=== PATIENT | female | born 1945 | race Caucasian/White ===

== ENCOUNTER 2017-11-15 21:29 | Inpatient (IN) | payer MEDICARE, MEDICAID ==
[~2017-11-15] VITALS: Ht 132.1 cm; Wt 57.4 kg
[~2017-11-15 21:29] MED LIST: DIABETA5 MG PO; FOSAMAX 70MG TA70 MG PO; GLYBURIDE5 MG PO; JANUVIA 100MG100 MG PO; JANUVIA100 MG PO; LISINOPRIL/HCTZ1 TA2 PO; MELOXICAM7.5 MG PO; METFORMIN1000 MG PO; METFORMIN500 MG PO; MOBIC7.5 MG PO; NEXIUM 40MG40 MG PO; NEXIUM40 MG PO; PHENERGAN 25 TA25 MG PO; VICODIN 5/5001 UDTAB PO
[2017-11-15 22:49] LABS: BASO % 0.4 % (0.0-2.0); GRAN # 9.9 (1.4-6.5); GRAN % 87.5 % (42.2-75.2); HEMATOCRIT 37.4 % (37.0-47.0); HEMOGLOBIN 12.2 g/dl (12.5-16.0); LYMPH % 8.4 % (20.0-51.0); MEAN CELL VOLUME 82 fl (80.0-100.0); MEAN CORPUSCULAR HEMOGLOBIN 27 pg (27.0-31.0); MEAN CORPUSCULAR HGB CONC 33 g/dl (33.0-37.0); MEAN PLATELET VOLUME 8.8 fl (7.4-10.4); MONO # 0.4 (0.1-0.6); MONO % 3.1 % (1.7-9.3); PLATELET COUNT 245 K/mm3 (130-400); RED BLOOD COUNT 4.56 M/mm3 (4.10-5.30); WHITE BLOOD COUNT 11.3 K/mm3 (4.8-10.8)
[2017-11-15] MEDS ORDERED: ANTIVERT 25MG25 MG PO (23:03)
[2017-11-15 23:05] LABS: ADJUSTED CALCIUM 9.1 mg/dL (8.4-10.2); ALANINE AMINOTRANSFERASE 113 U/L (9-52); ALBUMIN 4.6 gm/dL (3.5-5.0); ALKALINE PHOSPHATASE 135 U/L (50-136); ANION GAP 13 mmol/L (7-16); BILIRUBIN,TOTAL 0.6 mg/dL (0.0-1.0); BLOOD UREA NITROGEN 21 mg/dL (7-17); C-REACTIVE PROTEIN 0.9 mg/dL (0.0-0.9); CALCIUM 9.6 mg/dL (8.4-10.2); CARBON DIOXIDE 29 mmol/L (22-30); CHLORIDE 93 mmol/L (98-107); CREATININE, serum 0.67 mg/dL (0.52-1.25); GLUCOSE 273 mg/dL (74-106); LIPASE 164 U/L (23-300); POTASSIUM 3.7 mmol/L (3.4-5.0); SODIUM 135 mmol/L (137-145)
[2017-11-15] MEDS ORDERED: TOPROL XL 50MG50 MG PO (23:05)
[2017-11-15] MEDS ORDERED: NOVOLOG 100U100 U/M1 SQ (23:08)
[2017-11-15] MEDS ORDERED: PRIL40 PO (23:08)
[2017-11-15] MEDS ORDERED: SEROQUEL 200MG200 MG PO (23:09)
[2017-11-15] MEDS ORDERED: ZOFRAN ODT4 MG PO (23:10)
[2017-11-15] MEDS ORDERED: ASPIRIN E.C. 8181 MG PO (23:11)
[2017-11-15] MEDS ORDERED: VISTARIL 2525 MG/CAP PO (23:12)
[2017-11-15] MEDS ORDERED: LANTUS100 U/ML SQ (23:13)
[2017-11-15] MEDS ORDERED: MOTRIN 800800 MG/TAB PO (23:13)
[2017-11-15] MEDS ORDERED: PRINZIDE 12.5 M1 TAB PO (23:14)
[2017-11-15 23:15] LABS: TROPONIN-I < 0.012 ng/mL (0.000-0.034)
[2017-11-15] MEDS ORDERED: MEVACOR10 MG PO (23:15)
[2017-11-15 23:55] LABS: COLLECTION METHOD CLEAN CATCH
[2017-11-15 23:59] LABS: PH 6 (5-8); SQUAMOUS EPITHELIAL 0-2 /hpf; URINE APPEARANCE Clear; URINE BACTERIA None Seen /hpf; URINE BILIRUBIN Negative (NEGATIVE); URINE BLOOD Negative (NEGATIVE); URINE COLOR Yellow; URINE GLUCOSE 3+ (NEGATIVE); URINE KETONE 1+ (NEGATIVE); URINE LEUKOCYTE ESTERASE Negative (NEGATIVE); URINE PROTEIN(semi-quant) Negative (NEGATIVE); URINE RBC 0-2 /hpf; URINE UROBILINOGEN Negative (NEGATIVE)
[2017-11-16] VITALS (7 sets, daily range): BP systolic 152–185; BP diastolic 68–91; PULSE 63–80; TEMP 97.7–99.1
[2017-11-16 07:05] LABS: BASO % 0.3 % (0.0-2.0); EOS % 0.1 % (0-4.0); GRAN # 6.8 (1.4-6.5); GRAN % 67.5 % (42.2-75.2); LYMPH # 2.6 (1.2-3.4); MEAN CELL VOLUME 82 fl (80.0-100.0); MEAN CORPUSCULAR HGB CONC 33 g/dl (33.0-37.0); MEAN PLATELET VOLUME 9.7 fl (7.4-10.4); MONO # 0.6 (0.1-0.6); MONO % 5.7 % (1.7-9.3); PLATELET COUNT 262 K/mm3 (130-400); RED BLOOD COUNT 3.97 M/mm3 (4.10-5.30); WHITE BLOOD COUNT 10.1 K/mm3 (4.8-10.8)
[2017-11-16 07:08] LABS: HEMATOCRIT 32.5 % (37.0-47.0); HEMOGLOBIN 10.8 g/dl (12.5-16.0); MEAN CORPUSCULAR HEMOGLOBIN 27 pg (27.0-31.0)
[2017-11-16 07:14] LABS: ADJUSTED CALCIUM 8.7 mg/dL (8.4-10.2); ALBUMIN 3.8 gm/dL (3.5-5.0); BILIRUBIN,TOTAL 0.4 mg/dL (0.0-1.0); CALCIUM 8.5 mg/dL (8.4-10.2); CHOLESTEROL RISK RATIO 4.9; CREATININE, serum 0.63 mg/dL (0.52-1.25); POTASSIUM 3.5 mmol/L (3.4-5.0); TOTAL PROTEIN 6.8 gm/dL (6.4-8.2)
[2017-11-17] VITALS (12 sets, daily range): BP systolic 152–188; BP diastolic 66–89; PULSE 63–98; TEMP 98.2–99.3
[2017-11-17 07:34] LABS: BASO % 0.6 % (0.0-2.0); EOS % 0.6 % (0-4.0); GRAN # 4.5 (1.4-6.5); GRAN % 61.3 % (42.2-75.2); LYMPH # 2.1 (1.2-3.4); LYMPH % 28.9 % (20.0-51.0); MEAN CELL VOLUME 81 fl (80.0-100.0); MEAN CORPUSCULAR HGB CONC 34 g/dl (33.0-37.0); MEAN PLATELET VOLUME 9.5 fl (7.4-10.4); MONO # 0.6 (0.1-0.6); PLATELET COUNT 272 K/mm3 (130-400); RED BLOOD COUNT 4.02 M/mm3 (4.10-5.30); WHITE BLOOD COUNT 7.3 K/mm3 (4.8-10.8)
[2017-11-17 07:44] LABS: ADJUSTED CALCIUM 8.7 mg/dL (8.4-10.2); ALBUMIN 3.8 gm/dL (3.5-5.0); BILIRUBIN,TOTAL 0.4 mg/dL (0.0-1.0); CALCIUM 8.5 mg/dL (8.4-10.2); CREATININE, serum 0.62 mg/dL (0.52-1.25)
[2017-11-17 07:49] LABS: POTASSIUM 2.7 mmol/L (3.4-5.0)
[2017-11-17 07:51] LABS: HEMATOCRIT 32.7 % (37.0-47.0); HEMOGLOBIN 11.1 g/dl (12.5-16.0); MEAN CORPUSCULAR HEMOGLOBIN 28 pg (27.0-31.0)
[2017-11-18 04:19] VITALS: BP 152/64; PULSE 67; TEMP 98.5
[2017-11-18 06:51] LABS: BASO % 0.5 % (0.0-2.0); EOS % 0.5 % (0-4.0); GRAN # 5.8 (1.4-6.5); GRAN % 66.1 % (42.2-75.2); HEMOGLOBIN 11.9 g/dl (12.5-16.0); LYMPH # 2.2 (1.2-3.4); LYMPH % 25.5 % (20.0-51.0); MEAN CELL VOLUME 81 fl (80.0-100.0); MEAN CORPUSCULAR HEMOGLOBIN 27 pg (27.0-31.0); MEAN CORPUSCULAR HGB CONC 33 g/dl (33.0-37.0); MEAN PLATELET VOLUME 9.2 fl (7.4-10.4); MONO # 0.6 (0.1-0.6); MONO % 7.1 % (1.7-9.3); PLATELET COUNT 287 K/mm3 (130-400); RED BLOOD COUNT 4.42 M/mm3 (4.10-5.30); WHITE BLOOD COUNT 8.7 K/mm3 (4.8-10.8)
[2017-11-18 07:08] LABS: ADJUSTED CALCIUM 9.1 mg/dL (8.4-10.2); ALBUMIN 4.1 gm/dL (3.5-5.0); BILIRUBIN,TOTAL 0.5 mg/dL (0.0-1.0); CALCIUM 9.2 mg/dL (8.4-10.2); CREATININE, serum 0.66 mg/dL (0.52-1.25); MAGNESIUM 1.9 mg/dL (1.6-2.3); POTASSIUM 3.3 mmol/L (3.4-5.0); TOTAL PROTEIN 7.4 gm/dL (6.4-8.2)
[2017-11-18 08:54] VITALS: BP 143/61; PULSE 78; PULSE 785; TEMP 98.4
[2017-11-18] MEDS ORDERED: PRINZIDE 12.5 M1 TA1 PO (11:31)
[2017-11-18] MEDS ORDERED: ANTIVERT 12.512.5 MG PO (11:31)
[2017-11-18 11:45] VITALS: BP 179/90; PULSE 62; TEMP 98.1
== END 2017-11-18 15:54 | disposition home health service (06) | DRG 149 ==
LOC: COL.ER 21:29 → MEDICAL 23:22
PROVIDERS: Family Medicine; Internal Medicine; Nurse Practitioner Family
DX: H81.13 Benign paroxysmal vertigo, bilateral (principal); E11.9 Type 2 diabetes mellitus without complications; I16.0 Hypertensive urgency; E78.5 Hyperlipidemia, unspecified; E87.6 Hypokalemia; R07.1 Chest pain on breathing; Z79.84 Long term (current) use of oral hypoglycemic drugs
CPT/HCPCS: 99232-AI; 99233-AI; 99239; A9502; A9585; G0378; G8978-GP; G8979-GP; G8987-GO; G8988-GO; J1650; J1815; J2060; J2270; J2405; J2550; J2785; J3475; J3480; J7030

== ENCOUNTER 2018-04-18 17:10 | Emergency (ER) | payer MEDICARE, MEDICAID ==
[~2018-04-18 17:10] MED LIST changes: +ANTIVERT 12.512.5 MG PO; +ANTIVERT 25MG25 MG PO; +ASPIRIN E.C. 8181 MG PO; +LANTUS100 U/ML SQ; +MEVACOR10 MG PO; +MOTRIN 800800 MG/TAB PO; +NOVOLOG 100U100 U/M1 SQ; +PRIL40 PO; +PRINZIDE 12.5 M1 TA1 PO; +PRINZIDE 12.5 M1 TAB PO; +SEROQUEL 200MG200 MG PO; +TOPROL XL 50MG50 MG PO; +VISTARIL 2525 MG/CAP PO; +ZOFRAN ODT4 MG PO
[2018-04-18 17:18] VITALS: TEMP 97.4
[2018-04-18 17:48] LABS: BASO % 0.4 % (0.0-2.0); EOS # 0.1 (0.0-0.7); EOS % 1.2 % (0-4.0); GRAN # 3.9 (1.4-6.5); GRAN % 57.4 % (42.2-75.2); HEMOGLOBIN 11.9 g/dl (12.5-16.0); LYMPH # 2.2 (1.2-3.4); LYMPH % 32.7 % (20.0-51.0); MEAN CELL VOLUME 82 fl (80.0-100.0); MEAN CORPUSCULAR HEMOGLOBIN 27 pg (27.0-31.0); MEAN CORPUSCULAR HGB CONC 33 g/dl (33.0-37.0); MEAN PLATELET VOLUME 9.7 fl (7.4-10.4); MONO # 0.5 (0.1-0.6); MONO % 7.9 % (1.7-9.3); PLATELET COUNT 214 K/mm3 (130-400); RED BLOOD COUNT 4.38 M/mm3 (4.10-5.30); REDCELL DISTRIBUTION WIDTH-CV 13.2 % (11.5-14.5)
[2018-04-18 18:02] LABS: ALANINE AMINOTRANSFERASE 195 U/L (9-52); ALBUMIN 3.8 gm/dL (3.5-5.0); ALKALINE PHOSPHATASE 198 U/L (50-136); ANION GAP 13 mmol/L (7-16); AST,SGOT 165 U/L (15-37); BILIRUBIN,TOTAL 0.5 mg/dL (0.0-1.0); BLOOD UREA NITROGEN 24 mg/dL (7-17); CALCIUM 9.7 mg/dL (8.4-10.2); CARBON DIOXIDE 29 mmol/L (22-30); CHLORIDE 100 mmol/L (98-107); CREATININE, serum 0.71 mg/dL (0.52-1.25); GLUCOSE 245 mg/dL (74-106); HEMATOCRIT 35.9 % (37.0-47.0); POTASSIUM 4.3 mmol/L (3.4-5.0); SODIUM 142 mmol/L (137-145); TOTAL PROTEIN 7.5 gm/dL (6.4-8.2)
[2018-04-18 18:13] LABS: TROPONIN-I < 0.012 ng/mL (0.000-0.034)
[2018-04-18 18:34] LABS: ARTERIAL BLD GAS O2 SATURATION 94.4 % (92-100); ARTERIAL BLD GAS TCO2 CT 28.7; ARTERIAL BLOOD GAS BASE EXCESS 2.6 (-2-2); ARTERIAL BLOOD GAS HCO3 27.4 meq/L (22-26); ARTERIAL BLOOD GAS PCO2 43.2 mmHg (35-45); ARTERIAL BLOOD GAS PO2 77.4 mmHg (80-100); ARTERIAL BLOOD GAS pH 7.42 (7.35-7.45)
[2018-04-18 19:44] LABS: COLLECTION METHOD CLEAN CATCH
[2018-04-18 19:50] LABS: PH 5 (5-8); SQUAMOUS EPITHELIAL None Seen /hpf; URINE APPEARANCE Clear; URINE BACTERIA None Seen /hpf; URINE BILIRUBIN Negative (NEGATIVE); URINE BLOOD Negative (NEGATIVE); URINE COLOR Yellow; URINE GLUCOSE 3+ (NEGATIVE); URINE KETONE Trace (NEGATIVE); URINE LEUKOCYTE ESTERASE Negative (NEGATIVE); URINE NITRATE Negative (NEGATIVE); URINE PROTEIN(semi-quant) Negative (NEGATIVE); URINE RBC 0-2 /hpf; URINE UROBILINOGEN Negative (NEGATIVE)
[2018-04-18 23:06] VITALS: BP 196/82; PULSE 59
== END 2018-04-18 23:05 | disposition home or self-care (01) ==
LOC: COL.ER 17:10
PROVIDERS: Family Medicine
DX: R41.0 Disorientation, unspecified (principal); R53.1 Weakness; E11.9 Type 2 diabetes mellitus without complications; I10 Essential (primary) hypertension; Z79.82 Long term (current) use of aspirin; Z79.4 Long term (current) use of insulin
CPT/HCPCS: J7030; Q9967